=== PATIENT | female | born 2005 | race Caucasian/White ===

== ENCOUNTER → 2025-09-14 10:49 | Outpatient (CLI) | payer OTHER, SELFPAY | LOC: PHYS 10:51 | PROVIDERS: Family Provider Student in an Organized Health Care Education/Training Program; PCP Student in an Organized Health Care Education/Training Program; Referring Provider Student in an Organized Health Care Education/Training Program; Visit Provider Student in an Organized Health Care Education/Training Program | DX: R20.0 Anesthesia of skin (principal) | CPT/HCPCS: 95886; 95912 ==